=== PATIENT | male | born 1995 | race African-American/Black ===

== ENCOUNTER 2021-04-02 09:54 | Emergency (ER) | payer SELFPAY ==
[~2021-04-02] VITALS: Ht 172.7 cm; Wt 77.1 kg
[2021-04-02 10:04] VITALS: BP 148/87
== END 2021-04-02 15:16 | disposition left against medical advice (07) ==
LOC: ER 09:54
DX: R11.2 Nausea with vomiting, unspecified (principal); Z53.21 Procedure and treatment not carried out due to patient leaving prior to being seen by health care provider